=== PATIENT | male | born 1950 | race Caucasian/White ===

== ENCOUNTER → 2017-06-06 | Outpatient (CLI) | payer MEDICARE, OTHER ==
--- NOTE | 2017-06-06 14:56 | RAD ---
CT of the orbits without contrast. 06/06/2017 Indication: Recent trauma. Evaluate for fracture. Comparison study: None Discussion: Multidetector CT imaging of the orbits was performed without contrast. Limited visualization of the globes unremarkable. No intraconal abnormalities are identified. No intraorbital abnormalities are seen. Subcutaneous fat stranding is seen involving the left infraorbital region. No acute fluid levels within the visualized paranasal sinuses are seen. Mild diffuse mucosal thickening is seen throughout the paranasal sinuses. This may be the sequela of chronic sinus disease. The nasal bones are intact. Limited intracranial visualization is unremarkable. Possible scarring is seen on the left forehead. The bony orbits are intact. Atelectatic arches are intact. Pterygoid plates are intact. Periodontal disease noted. Impression: No acute osseous changes are identified. PQRS Compliance Statement: One or more of the following individualized dose reduction techniques were utilized for this examination: 1. Automated exposure control 2. Adjustment of the mA and/or kV according to patient size 3. Use of iterative reconstruction technique
== END | disposition home or self-care (01) ==
LOC: CT 12:49
PROVIDERS: ATTEND Family Medicine
DX: S05.92XD Unspecified injury of left eye and orbit, subsequent encounter (principal); W19.XXXD Unspecified fall, subsequent encounter; K05.6 Periodontal disease, unspecified
CPT/HCPCS: 70480

== ENCOUNTER 2019-06-11 11:49 | Inpatient (IN) | payer MEDICARE, OTHER ==
[2019-06-11] VITALS (17 sets, daily range): BP systolic 102–143; BP diastolic 39–75
[~2019-06-11] VITALS: Ht 182.9 cm; Wt 135.8 kg
[2019-06-11] MEDS ORDERED: LISI40TA PO (12:52)
[2019-06-11] MEDS ORDERED: FURO40TA4 PO (12:52)
[2019-06-11] MEDS ORDERED: METF500T16 (12:52)
[2019-06-11] MEDS ORDERED: AMLO2.5T5 PO (12:52)
[2019-06-11] MEDS ORDERED: INSU100I17 SQ (12:52)
[2019-06-11] MEDS ORDERED: CARV25TA2 PO (12:52)
[2019-06-11] MEDS ORDERED: INSU100V13 SQ (12:52)
[2019-06-11] MEDS ORDERED: ALFU10TA4 PO (12:52)
[2019-06-11] MEDS ORDERED: ATOR40TA59 PO (12:52)
[2019-06-11] MEDS ORDERED: AMLO10TA8 PO (12:52)
[2019-06-11] MEDS ORDERED: PHEN37.5 PO (12:52)
[2019-06-11] MEDS ORDERED: TORS20TA2 PO (12:52)
[2019-06-11] MEDS ORDERED: PANT40TA5 PO (12:52)
--- NOTE | 2019-06-11 13:24 | NUR ---
NURSING NOTE ADMIT PT WAS DIRECT ADMIT TO ROOM [address] OLIVAS OFFICE. PT STATES HE HAS LACK OF ENERGY X1 WEEK AND FATIGUE. PT DENIES N/V/D. PT DENIES CHEST PAIN/ABD PAIN. STATES HE JUST IS WEAK AND HAS NO ENERGY. PT MEDS ENTERED INTO CHART. DR OLIVAS NOTIFIED OF PT ARRIVAL. ORDERS PENDING. NO COMPLICATIONS. RAMIREZ QUINTANILLA.
[2019-06-11 13:33] LABS: BASO # 0.1 x10^3/uL (0.0-0.2); BASO % 0 % (0-3); EOS # 0.3 x10^3/uL (0.0-0.7); EOS % 2 % (0-3); LYMPH # 1.8 x10^3/uL (1.0-4.8); LYMPH % 12 % (24-48); MEAN CORPUSCULAR HEMOGLOBIN 27 pg (25-35); MEAN CORPUSCULAR HGB CONC 31 g/dL (31-37); MEAN CORPUSCULAR VOLUME 87 fL (79-100); MONO # 1.1 x10^3/uL (0.0-1.1); MONO % 8 % (0-9); NEUT # 11.4 x10^3uL (1.8-7.7); NEUT % 78 % (31-73); PLATELET COUNT 326 x10^3/uL (140-400); RED BLOOD COUNT 1.87 x10^6/uL (4.30-5.70); RED CELL DISTRIBUTION WIDTH 15.3 % (11.5-14.5); WHITE BLOOD COUNT 14.6 x10^3/uL (4.0-11.0)
[2019-06-11 13:42] LABS: ALBUMIN 2.4 g/dL (3.4-5.0); ALBUMIN/GLOBULIN RATIO 0.7 (1.0-1.7); CALCIUM 7.5 mg/dL (8.5-10.1); CREATININE 1.8 mg/dL (0.7-1.3); GFR 37.8; HEMATOCRIT 16.2 % (39.0-53.0); HEMOGLOBIN 5.1 g/dL (13.0-17.5); POTASSIUM 3.9 mmol/L (3.5-5.1); TOTAL BILIRUBIN 0.5 mg/dL (0.2-1.0); TOTAL PROTEIN 5.7 g/dL (6.4-8.2)
--- NOTE | 2019-06-11 13:43 | NUR ---
NURSING NOTE CRITICAL RESULT HGB 5.1. DR OLIVAS NOTIFIED ORDERS OBTAINED FOR 500ML OF NS BOLUS AND NS @ 100 TO FOLLOW, CXR, AND 2 UNITS OF PACKED RBC, HEMOCULT. RAMIREZ QUINTANILLA.
[2019-06-11] MEDS ORDERED: IV NORMAL SALINE 500ML 500 ML IV ONE (14:00)
--- NOTE | 2019-06-11 14:16 | NUR ---
NURSING NOTE ORDERS TO TRANSFER PT TO ICU PER DR OLIVAS. REPORT GIVEN TO RAMIREZ PEREZ. RAMIREZ QUINTANILLA.
--- NOTE | 2019-06-11 14:18 | RAD ---
EXAM: CHEST ONE VIEW. HISTORY: Shortness of breath. COMPARISON: 05/12/2012. FINDINGS: A frontal view of the chest is obtained. There are mild interstitial opacities in the right midlung. There is no pneumothorax or pleural effusion. The heart is moderately enlarged. IMPRESSION: 1. Mild right midlung infiltrate versus atelectasis. 2. Moderate cardiomegaly. Electronically signed by: Oscar Grey MD (06/11/2019 2:15 PM) [facility]
[2019-06-11] MEDS: PANTOPRAZOLE IV 40 MG VIAL. IVP SCH (14:28)
[2019-06-11] MEDS: IV NORMAL SALINE 1,000ML 1,000 ML IV SCH (14:28)
--- NOTE | 2019-06-11 16:49 | NUR ---
Blood Transfusion started at 1623. Tubing Primed with NS and then primed with blood. Transfusion started at 65/hr, patient monitored closely x15min. No reaction noted, transfusion increased to 120/hr;
[2019-06-11 17:21] LABS: CLARITY,URINE CLEAR; COLOR,URINE YELLOW
[2019-06-11 17:22] LABS: BILIRUBIN,URINE NEG (NEG); GLUCOSE,URINE NEG (NEG)
[2019-06-11 17:24] LABS: NITRITE,URINE POS (NEG); UROBILINOGEN,URINE 0.2 mg/dL (0.2 mg/dL)
[2019-06-11] MEDS ORDERED: DEXTROSE 50% 25 GM / 50ML DISP.SYRIN. IV PRN (17:30)
--- NOTE | 2019-06-11 17:30 | NUR ---
Patient arrived to [facility], states that he has had multiple nose bleeds since the week before tuesday and they have stopped on tuesday. Also states that he was recently transferred from the [place] to for his nose bleed to see the ENT, per patient "I went to and they poked around on me, couldn't find anything so i had enough and left" Patient is a poor historian and states he is still taking his Naproxen, states well "they didn't mention anything so im still taking it."
--- NOTE | 2019-06-11 17:30 | NUR ---
[facility] obtained but no information stating recent transfer or lab work. Will give to dr Starks in the AM.
[2019-06-11 17:51] LABS: BACTERIA,URINE FEW /HPF (0-FEW); RBC,URINE 0 /HPF (0-2); SQUAMOUS EPITHELIAL CELL,UR OCC /LPF; WBC,URINE OCC /HPF (0-4)
[2019-06-11 19:54] LABS: HEMATOCRIT 18.8 % (39.0-53.0); HEMOGLOBIN 5.9 g/dL (13.0-17.5)
[2019-06-11] MEDS ORDERED: INSULIN GLARGINE SYRINGE. SQ SCH (21:00)
[2019-06-11] MEDS ORDERED: ATORVASTATIN CALCIUM 20 MG TABLET PO SCH (21:00)
[2019-06-11] MEDS ORDERED: amLODIPine BESYLATE 2.5 MG TABLET PO SCH (21:00)
[2019-06-11] MEDS: CARVEDILOL 12.5 MG TABLET PO SCH (21:26)
[2019-06-11] MEDS ORDERED: FUROSEMIDE 20 MG/2 ML VIAL IVP ONE (23:59)
[2019-06-12] VITALS (19 sets, daily range): BP systolic 123–167; BP diastolic 56–86
--- NOTE | 2019-06-12 00:30 | NUR ---
Blood transfusion started at 2103. Tubing primed with Normal Saline and then primed with blood. Transfusion started at 65 mls/hr (rate), patient monitored closely x 15 minutes. No reaction noted, transfusion increased to 125mls/hr. Transfusion completed at 2303. Vital signs documented. Unable to document "begin" or "end" d/t system limitations. Help Desk notified of issue.
[2019-06-12 06:30] LABS: BASO # 0.1 x10^3/uL (0.0-0.2); BASO % 0 % (0-3); EOS # 0.3 x10^3/uL (0.0-0.7); EOS % 2 % (0-3); HEMATOCRIT 21.1 % (39.0-53.0); LYMPH # 1.6 x10^3/uL (1.0-4.8); LYMPH % 10 % (24-48); MEAN CORPUSCULAR HEMOGLOBIN 28 pg (25-35); MEAN CORPUSCULAR HGB CONC 33 g/dL (31-37); MEAN CORPUSCULAR VOLUME 86 fL (79-100); MONO # 1.5 x10^3/uL (0.0-1.1); MONO % 9 % (0-9); NEUT # 12.6 x10^3uL (1.8-7.7); NEUT % 79 % (31-73); PLATELET COUNT 320 x10^3/uL (140-400); RED BLOOD COUNT 2.45 x10^6/uL (4.30-5.70); RED CELL DISTRIBUTION WIDTH 15.2 % (11.5-14.5); WHITE BLOOD COUNT 16.1 x10^3/uL (4.0-11.0)
[2019-06-12 06:34] LABS: HEMOGLOBIN 6.9 g/dL (13.0-17.5)
[2019-06-12 06:36] LABS: CALCIUM 7.4 mg/dL (8.5-10.1); CREATININE 1.6 mg/dL (0.7-1.3); GFR 43.3; POTASSIUM 3.9 mmol/L (3.5-5.1)
[2019-06-12 07:18] LABS: % BANDS 0 % (0-9); % BASOS 1 % (0-3); % EOS 1 % (0-5); % LYMPHS 11 % (24-48); % MONOS 6 % (0-10); % SEGS 81 % (35-66); HYPOCHROMIA SLIGHT; PLT ESTIMATE ADEQUATE (ADEQUATE); POLYCHROMASIA SLIGHT
[2019-06-12] MEDS ORDERED: PANTOPRAZOLE 40 MG TABLET. PO SCH (07:30)
[2019-06-12] MEDS: CARVEDILOL 12.5 MG TABLET PO SCH ×2 (08:29→14:09)
[2019-06-12] MEDS: PANTOPRAZOLE IV 40 MG VIAL. IVP SCH (08:30)
[2019-06-12] MEDS: INSULIN LISPRO 300 UNITS/3 ML VIAL. SQ SCH ×6 (08:31→16:35)
[2019-06-12] MEDS ORDERED: SODIUM CHL/ALOE VERA NASAL GEL 14.1GM TUBE. NS PRN (08:45)
[2019-06-12] MEDS ORDERED: LISINOPRIL 20 MG TABLET PO SCH (09:00)
[2019-06-12] MEDS ORDERED: TAMSULOSIN 0.4 MG CAP.ER.24H. PO SCH (09:00)
[2019-06-12] MEDS ORDERED: FUROSEMIDE 40 MG TABLET PO SCH (09:00)
[2019-06-12] MEDS ORDERED: levoFLOXacin PER PHARMACY 1 EACH. MC PRN (09:30)
[2019-06-12] MEDS: IV NORMAL SALINE 1,000ML 1,000 ML IV SCH ×2 (10:29)
--- NOTE | 2019-06-12 11:53 | RAD ---
CT CHEST WO CONTRAST Indication: Infiltrate Technique: Noncontrast CT imaging was performed of the chest, multiplanar reconstruction images submitted. One or more of the following individualized dose reduction techniques were utilized for this examination: 1. Automated exposure control 2. Adjustment of the mA and/or kV according to patient size 3. Use of iterative reconstruction technique. Comparison: None Findings: There is severe motion degradation. There are small dependent pleural effusions bilaterally, right greater than left. Heart is somewhat enlarged. There is severe coronary calcification. There is no pneumothorax. There is scattered fairly prominent infiltrate of the left upper lobe with areas of groundglass density present. Major airways are grossly patent although limited characterization due to severe motion. Tubular ascending thoracic aorta is ectatic, estimated about 3.9 cm. No significantly enlarged nodes are identified of the chest. There is old ununited fracture of the left posterolateral eighth rib. IMPRESSION: 1. There are small dependent pleural effusions bilaterally. There is scattered left upper lobe infiltrate/edema. Exam is degraded by severe motion. 2. There is severe coronary calcification. Heart is somewhat enlarged. Electronically signed by: Doyle Kaur MD (06/12/2019 11:51 AM) [id number]
[2019-06-12] MEDS ORDERED: FUROSEMIDE 40 MG/4 ML VIAL IVP SCH (12:45)
[2019-06-12] MEDS ORDERED: MORPHINE SULFATE 2 MG/ML DISP.SYRIN. IV PRN (12:45)
[2019-06-12 13:50] LABS: BGAS PH 7.4 (7.35-7.46)
--- NOTE | 2019-06-12 13:55 | NUR ---
Patient is lethargic, increased respirations of 30, AMS. Vitals were 160/90, pulse 68, RESP 30. New orders for EKG, troponins, lactic acid, BIPAP received from Dr. Estrada via telephone at 1315 due to change in condition of patient. RT is currently at bedside performing EKG, ABGs and applying BIPAP.
[2019-06-12] MEDS ORDERED: VANCOMYCIN PER PHARMACY MC PRN (14:00)
[2019-06-12] MEDS ORDERED: PIP/TAZO PER PHARMACY MC PRN (14:00)
--- NOTE | 2019-06-12 14:08 | EKG ---
[address] [address] Test Date: 2019-06-12 Test Time: 13:50:27 Pat Name: MALIA SINGLETON Department: Room: [facility] 1 Gender: M Radiographer Technologist: ABBEY : 1950 Requested By: KAJAL OLIVAS Order Number: [id number] Reading MD: Measurements Intervals [place] Rate: 68 P: MS: QRS: 76 QRSD: 106 T: -12 QT: 428 QTc: 455 Interpretive Statements ACCELERATED JUNCTIONAL RHYTHM QRS(T) CONTOUR ABNORMALITY CONSIDER INFERIOR MYOCARDIAL DAMAGE T ABNORMALITY IN ANTERIOR LEADS ABNORMAL ECG RI6.02 Compared to ECG 01/03/2012 08:41:13 Accelerated junctional rhythm now present T-wave abnormality now present Sinus rhythm no longer present Left-axis deviation no longer present Right bundle-branch block no longer present Myocardial infarct finding no longer present
[2019-06-12 14:14] LABS: BASO # 0.1 x10^3/uL (0.0-0.2); BASO % 0 % (0-3); EOS # 0.2 x10^3/uL (0.0-0.7); EOS % 1 % (0-3); HEMATOCRIT 21.6 % (39.0-53.0); LYMPH # 1.2 x10^3/uL (1.0-4.8); LYMPH % 7 % (24-48); MEAN CORPUSCULAR HEMOGLOBIN 27 pg (25-35); MEAN CORPUSCULAR HGB CONC 32 g/dL (31-37); MEAN CORPUSCULAR VOLUME 86 fL (79-100); MONO # 1.6 x10^3/uL (0.0-1.1); MONO % 9 % (0-9); NEUT # 13.9 x10^3uL (1.8-7.7); NEUT % 82 % (31-73); PLATELET COUNT 341 x10^3/uL (140-400); RED BLOOD COUNT 2.51 x10^6/uL (4.30-5.70); RED CELL DISTRIBUTION WIDTH 15.5 % (11.5-14.5); WHITE BLOOD COUNT 16.9 x10^3/uL (4.0-11.0)
[2019-06-12 14:18] LABS: CALCIUM 7.6 mg/dL (8.5-10.1); CREATININE 1.5 mg/dL (0.7-1.3); GFR 46.7; POTASSIUM 4.1 mmol/L (3.5-5.1)
[2019-06-12 14:22] LABS: HEMOGLOBIN 6.8 g/dL (13.0-17.5)
[2019-06-12] MEDS ORDERED: VANCOMYCIN 2 GM in IV NORMAL SALINE 500ML 500 ML IV ONE (14:30)
--- NOTE | 2019-06-12 15:35 | PDOC ---
PROVIDER NOTE PROVIDER NOTE PROVIDER NOTE Pt. seen and examined. Note dictated. Patient with severe anemia and not improved despite 2 units and downtrending He also appears to be in heart failure requiring bipap would transfer [facility]/pulm eval. thanks RAHAT AVENDAÑO MD Jun 12, 2019 15:35
--- NOTE | 2019-06-12 15:45 | CONS ---
DATE OF CONSULTATION: 06/12/2019 REASON FOR CONSULTATION: Heart failure. HISTORY OF PRESENT ILLNESS: His history is quite limited as there are no current records available regarding when he presented, but speaking with the nurse, it appears that he had anemia at an outside facility and was transferred for further evaluation. His hemoglobin originally was 5.1 on 06/11/2019 and he has been given 2 units of blood. He still appears to be anemic today at 2:00 p.m. He also has known chronic kidney disease. Otherwise, the patient is currently somnolent on BiPAP therapy. PAST MEDICAL HISTORY: 1. Hypertension. 2. Diabetes type 2. 3. Dyslipidemia. 4. Coronary artery disease, status post left heart catheterization in 2009. 5. Chronic leukocytosis and neutrophilia, PCR BCR-ABL negative. 6. Chronic diastolic heart failure with an ejection fraction of 60% on an echo in 2014 with a normal myocardial perfusion study in 2016. SOCIAL HISTORY: Unavailable. CURRENT CARDIOVASCULAR MEDICATIONS: 1. Amlodipine 10 mg daily. 2. Atorvastatin 40 mg daily. 3. Coreg 25 mg p.o. t.i.d. 4. Lasix 40 mg daily. 5. Torsemide 20 mg daily. 6. Phentermine 37.5 mg b.i.d. 7. Alfuzosin 10 mg daily. 8. Metformin 1000 mg b.i.d. 9. Pantoprazole 40 mg daily. These are his home medications. CURRENT HOSPITAL MEDICATIONS: Include amlodipine, furosemide, lisinopril, carvedilol, atorvastatin. ALLERGIES: No known drug allergies. PHYSICAL EXAMINATION: VITAL SIGNS: Afebrile, 76, 20, 164/86, 93% on BiPAP therapy. GENERAL: He is somnolent and difficult to arouse, but he is breathing on his own. LUNGS: Fairly clear to auscultation anteriorly. ABDOMEN: Obese, protuberant, nontender. CARDIAC: Regular rate and rhythm without any obvious murmurs. EXTREMITIES: With 1+ pedal edema. NEUROLOGIC: Unable to perform given the patient's somnolence. MUSCULOSKELETAL: No obvious trauma. DIAGNOSTIC STUDIES: Hemoglobin as noted at 6.8. Creatinine is 1.5, which is improved since admission. CT of the chest demonstrates possible dependent pleural effusions, small in nature with left upper lobe infiltrate. EKG is difficult to interpret due to motion artifact, but appears to be sinus rhythm without any acute ST-T wave ischemic changes. IMPRESSION: 1. Multifactorial respiratory failure: Differential diagnosis was pneumonia versus acute on chronic diastolic heart failure. 2. Multiple other cardiovascular comorbidities as noted above. RECOMMENDATIONS: At this present time, would plan for continued treatment of his anemia and await improvement of his respiratory status. He likely is in some diastolic heart failure and agrees with continuation of Lasix. Monitor his renal function. He will ultimately need an ischemic evaluation on an outpatient basis. Supportive care for now. *After discussion with nursing staff, I recommend he be transferred to [place]. Thank you for this consultation. RAHAT AVENDAÑO MD DR: MELVA/telma JOB#: [id number] / [id number]
--- NOTE | 2019-06-12 17:24 | PN ---
DATE: SUBJECTIVE: A 68-year-old gentleman in with anemia, hemoglobin down to 5.2, had nosebleeds with ____ at [facility]. Apparently, they were unable to get blood and they sent him home. Anyway, he came in and he was extremely pale, weak and tired. Blood pressure 164/86 this morning, respiratory rate 15, pulse 73, and afebrile. The patient is alert and oriented, better color after 2 units of packed RBCs with hemoglobin up to 6.9 and 21, white count 16,000. The patient started on IV antibiotic therapy. CT scan of the chest to be performed. The patient has severe protein malnutrition and chronic kidney disease stage 3. He has a long history of coronary artery disease. In any case, the patient seems to be making fairly good progress. We will continue to monitor for any acute more bleeds as well as getting this CT scan to see whether or not he has any type of a pneumonic process on top of his other problems. His chest x-ray did show mild infiltrative process (____) continue on such. IMPRESSION: Anemia secondary to epistaxis and GI bleed, also with pneumonia of unspecified etiology, chronic kidney disease stage 3, type 2 diabetes, morbid obesity, and severe protein malnutrition. The patient is ambulatory. KAJAL OLIVAS MD DR: ALAN/telma JOB#: [id number] / [id number]
[2019-06-12] MEDS ORDERED: PIPERACILLIN/TAZOBACTAM 3.375 GM in IV NORMAL SALINE 50ML 50 ML IV SCH (18:00)
--- NOTE | 2019-06-12 19:07 | NUR ---
Pt transferred to [facility] for higher level of care. Report called to andrés Schultz, [facility]. Pt left unit via gurney accompanied by ems. Pt family notified of pt transfer.
[2019-06-12] MEDS ORDERED: LACTOBACILLUS RHAMNOSUS GG 1 CAPSULE. PO SCH (21:00)
[2019-06-12] MEDS ORDERED: amLODIPine BESYLATE 10 MG TABLET PO SCH (21:00)
== END 2019-06-12 18:30 | disposition short-term general hospital (02) | DRG 377 ==
LOC: 1 SOUTH 11:49 → ICU 13:57
PROVIDERS: ADMIT Family Medicine; ATTEND Family Medicine
PROC: 30233N1 Transfusion of Nonautologous Red Blood Cells into Peripheral Vein, Percutaneous Approach (ICD-10-PCS; principal; 2019-06-11)
DX: K92.2 Gastrointestinal hemorrhage, unspecified (principal); J18.9 Pneumonia, unspecified organism; E43 Unspecified severe protein-calorie malnutrition; J96.90 Respiratory failure, unspecified, unspecified whether with hypoxia or hypercapnia; I50.33 Acute on chronic diastolic (congestive) heart failure; D62 Acute posthemorrhagic anemia; I13.0 Hypertensive heart and chronic kidney disease with heart failure and stage 1 through stage 4 chronic kidney disease, or unspecified chronic kidney disease; Z68.41 Body mass index [BMI] 40.0-44.9, adult; R04.0 Epistaxis; I25.10 Atherosclerotic heart disease of native coronary artery without angina pectoris; E78.5 Hyperlipidemia, unspecified; N18.3 Chronic kidney disease, stage 3 (moderate); E66.01 Morbid (severe) obesity due to excess calories; E11.22 Type 2 diabetes mellitus with diabetic chronic kidney disease; Z79.84 Long term (current) use of oral hypoglycemic drugs; Z79.899 Other long term (current) drug therapy
CPT/HCPCS: 36415; 71045; 71250; 80048; 80053; 81001; 82550; 82803; 82947; 83540; 83550; 83605; 84145; 84443; 84484; 85007; 85014; 85018; 85025; 85610; 86850; 86900; 86901; 86920; 87086; 93005; C9113; J0696; J1815; J1940; J1956; J3370; J7040; P9016; J7030